=== PATIENT | male | born 1995 | race Caucasian/White ===

== ENCOUNTER 2018-03-25 21:52 | Emergency (ER) | payer BC, MEDICAID ==
[~2018-03-25] VITALS: Ht 180.3 cm; Wt 90.7 kg
[~2018-03-25 21:52] MED LIST: CEFI200T PO; RABE20EC PO
[2018-03-25 21:59] VITALS: BP 144/80
--- NOTE | 2018-03-25 22:01 | NUR ---
TO LOBBY A/W BED AMBULATORY, KENZIE FRANCO NOTED
--- NOTE | 2018-03-25 22:23 | NUR ---
PT TAKEN TO BED 10
--- NOTE | 2018-03-25 22:30 | NUR ---
PT BIB SELF C/O CHEST PAIN AND SOB AFTER EATING "CHICKEN AND FEELING SOMETHING SHARP MAYBE A BONE" AND NOW HAVING PAIN. RR EVEN AND UNLABORED, BL BS CLEAR THROUGHOUT. PT SLEEPING IN BED, EASILY AROUSABLE TO NAME.
--- NOTE | 2018-03-25 22:40 | NUR ---
Dr. Chandler evaluating patient at bedside.
--- NOTE | 2018-03-25 22:52 | NUR ---
PT TAKEN TO XRAY
--- NOTE | 2018-03-25 23:00 | NUR ---
PT RETURN FROM XRAY
[2018-03-26 01:02] VITALS: BP 112/69
--- NOTE | 2018-03-26 01:03 | NUR ---
Patient discharged with v/s stable. Written and verbal after care instructions given and explained. Patient verbalized understanding. Ambulatory with steady gait. All questions addressed prior to discharge. Advised to follow up with PMD.
== END 2018-03-26 01:03 | disposition home or self-care (01) ==
LOC: MED 21:52
DX: K22.8 Other specified diseases of esophagus (principal); Z79.899 Other long term (current) drug therapy
CPT/HCPCS: 70360; 71045; 93005; 99283

== ENCOUNTER 2023-02-05 06:49 | Emergency (ER) | payer BC ==
[~2023-02-05] VITALS: Ht 180.3 cm; Wt 81.2 kg
[2023-02-05 06:59] VITALS: BP 141/77; PULSE 71; RESP 20; TEMP 98.1; O2SAT 99
[2023-02-05] MEDS ORDERED: KETOROLAC 30 MG/ML VIAL IVP ONE (07:10)
[2023-02-05] MEDS ORDERED: ONDANSETRON 4 MG/2 ML VIAL IVP ONE (07:10)
[2023-02-05 07:45] LABS: APPEARANCE,URINE CLEAR (CLEAR); BILIRUBIN,URINE NEGATIVE (NEGATIVE); BLOOD, URINE 3+ (NEGATIVE); COLOR,URINE YELLOW (YELLOW); LEUKOCYTE ESTERASE ,URINE NEGATIVE (NEGATIVE); NITRITE, URINE NEGATIVE (NEGATIVE); PROTEIN,URINE 1+ (NEGATIVE); UGLUCOSE NEGATIVE (NEGATIVE); UROBILINOGEN,URINE 0.2 EU/dL (0.2 - 1)
[2023-02-05 07:54] LABS: BASOPHILS % (AUTO) 0.4 % (0.0-2.0); EOSINOPHILS # (AUTO) 0.1 K/uL (0-0.4); HEMATOCRIT 46.6 % (36-52); HEMOGLOBIN 15.6 g/dL (12.0-18.0); LYMPHOCYTES # (AUTO) 1.2 K/uL (2.0-11.5); LYMPHOCYTES % (AUTO) 10.7 % (20.5-51.1); MEAN CORPUSCULAR HEMOGLOBIN 30 pg (27-31); MEAN CORPUSCULAR HGB CONC 34 g/dL (33-37); MEAN CORPUSCULAR VOLUME 89.3 fL (80-94); MONOCYTES # (AUTO) 0.6 K/uL (0.8-1.0); NEUTROPHILS # (AUTO) 9.2 K/uL (1.8-7.7); NEUTROPHILS % (AUTO) 82.9 % (42.2-75.2); PLATELET COUNT (AUTO) 276 K/uL (140-450); RED BLOOD CELL COUNT(AUTO) 5.21 MIL/uL (4.20-6.10); RED CELL DISTRIBUTION WIDTH 13.2 % (11.6-13.7); WHITE BLOOD COUNT (AUTO) 11.1 K/uL (4.8-10.8)
[2023-02-05 08:02] LABS: BACTERIA,URINE FEW /HPF (None Seen); MUCUS,URINE None Seen /LPF (None Seen); RBC,URINE >20 (MANY) /HPF (0-5); SQUAMOUS EPITHELIAL CELL,UR 0-3 (FEW) /LPF (0-3 (FEW)); TRICHOMONAS,URINE None Seen /HPF (None Seen); WHITE BLOOD CELL CASTS,URINE None Seen /LPF (None Seen); YEAST,URINE None Seen /HPF (None Seen)
[2023-02-05 08:15] LABS: ALBUMIN 4.3 g/dL (3.4-5.0); ANION GAP 10.4 (8-16); CALCIUM 8.6 mg/dL (8.5-10.1); CARBON DIOXIDE 32.2 mmol/L (21-32); CREATININE 0.9 mg/dL (0.6-1.3); POTASSIUM 3.6 mmol/L (3.5-5.1); TOTAL BILIRUBIN 0.7 mg/dL (0.0-1.0); TOTAL PROTEIN, SERUM 7.6 g/dL (6.4-8.2)
[2023-02-05] MEDS ORDERED: NAPR-1704 PO (08:50)
[2023-02-05] MEDS ORDERED: ONDA-188 PO (08:50)
[2023-02-05 09:51] VITALS: BP 141/77; PULSE 71; RESP 20; TEMP 98.1; O2SAT 99
== END 2023-02-05 09:51 | disposition home or self-care (01) ==
LOC: MED 06:49
DX: N20.0 Calculus of kidney (principal); Z79.899 Other long term (current) drug therapy; Z79.1 Long term (current) use of non-steroidal anti-inflammatories (NSAID)
CPT/HCPCS: 36415; 74176; 80053; 81001; 85025; 87086; 96374; 96375; 99285; J1885; J2405